=== PATIENT | female | born 2000 | race American Indian/Alaskan Native ===

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

== ENCOUNTER 2022-04-27 21:46 | Emergency (ER) | payer MEDICAID ==
[2022-04-27] MEDS ORDERED: Tetracaine HCl/PF 0.5% 4 ML Bottle ONE (22:22)
[2022-04-27] MEDS ORDERED: Amoxicillin 500 MG Cap PO ONE (22:22)
== END 2022-04-27 22:40 | disposition home or self-care (01) ==
LOC: DL.ED 21:46
DX: H66.91 Otitis media, unspecified, right ear (principal); H66.92 Otitis media, unspecified, left ear
CPT/HCPCS: 99282; A9270

== ENCOUNTER 2023-02-08 04:58 | Emergency (ER) | payer SELFPAY ==
[~2023-02-08 04:58] MED LIST changes: -Acetaminophen 325 MG Tab PO PRN; -Carboprost Tromethamine 250 MCG/1 ML Amp IM PRN; -Lactated Ringers 1,000 ML IV ONE; -Lactated Ringers 1,000 ML IV SCH; -Lidocaine 1% 30 ML SDV INJECT PRN; -Methylergonovine 0.2 MG/1 ML Amp IM PRN; -Misoprostol 25 MCG (1/4 of 100 MCG) Tab VAG PRN; -Misoprostol 400 MCG (4 X 100 MCG TAB) RECTAL PRN; -Misoprostol 50 MCG (1/2 of 100 MCG) Tab VAG ONE; -Oxytocin/Normal Saline 30 UNIT/500 ML BAG IV SCH; +Sodium Chloride 0.9% 1,000 ML IV ONE; -Tranexamic Acid 1,000 MG in Sodium Chloride 0.9% 100 ML IV PRN
[2023-02-08 05:13] LABS: BASOPHILS PERCENT AUTO 0.3 % (0.0-1.0); EOSINOPHILS PERCENT AUTO 2.7 % (1.0-3.0); HEMATOCRIT 37.7 % (37.0-47.0); HEMOGLOBIN 12.3 g/dL (12.0-16.0); LYMPHOCYTES PERCENT AUTO 29.2 % (20.5-50.1); MEAN CORPUSCULAR HEMOGLOBIN 23.3 pg (27.0-34.0); MEAN CORPUSCULAR HGB CONC 32.6 g/dL (33.0-35.0); MEAN CORPUSCULAR VOLUME 71.3 fL (80-100); MONOCYTES PERCENT AUTO 6.4 % (2-8); NEUTROPHILS PERCENT AUTO 61.4 % (42.2-75.2); PLATELET COUNT,PLT 439 10^3/uL (150-450); RED BLOOD CELL COUNT 5.29 10^6/uL (4.2-5.4); WHITE BLOOD CELL COUNT,WBC 10.5 10^3/uL (5.0-10.0)
[2023-02-08 05:32] LABS: A/G RATIO 0.9; ALANINE AMINOTRANSFERASE,ALT 43 U/L (14-59); ALBUMIN 3.8 g/dL (3.4-5.0); ALKALINE PHOSPHATASE 163 U/L (46-116); ANION GAP 17.4 mEq/L (7-13); ASPARTATE AMNIOTRANSFERASE,AST 30 U/L (15-37); BILIRUBIN TOTAL 0.3 mg/dL (0.2-1.0); BLOOD UREA NITROGEN,BUN 7 mg/dL (7-18); BUN/CREATININE RATIO 11.7 (No establ ref range); CALCIUM 8.4 mg/dL (8.5-10.1); CARBON DIOXIDE,CO2 23 mmol/L (21-32); CHLORIDE,CL 102 mmol/L (98-107); ETHANOL BLOOD MEDICAL 266 mg/dL (0); GLUCOSE RANDOM 139 mg/dL (70-99); POTASSIUM,K 3.4 mmol/L (3.5-5.1); PROTEIN TOTAL,TP 7.9 g/dL (6.4-8.2); SODIUM,NA 139 mmol/L (136-145)
[2023-02-08 05:34] LABS: ESTIMATED GFR 132 mL/min (>=60)
[2023-02-08] MEDS ORDERED: Ondansetron 8 MG in Sodium Chloride 0.9% 50 ML IV ONE (05:59)
== END 2023-02-08 08:32 | disposition home or self-care (01) ==
LOC: DL.ED 04:58
DX: S00.03XA Contusion of scalp, initial encounter (principal); S00.83XA Contusion of other part of head, initial encounter; S10.93XA Contusion of unspecified part of neck, initial encounter; F10.929 Alcohol use, unspecified with intoxication, unspecified; Y90.8 Blood alcohol level of 240 mg/100 ml or more; Y04.0XXA Assault by unarmed brawl or fight, initial encounter
CPT/HCPCS: 36415; 70450; 70486; 80053; 80307; 82947; 84703; 85025; 96361; 96374; 99284; 99285; J2405; J3490; J7030

== ENCOUNTER 2023-04-11 07:53 | Emergency (ER) | payer SELFPAY | END 2023-04-11 08:36 | disposition home or self-care (01) | LOC: DL.ED 07:53 | DX: L60.3 Nail dystrophy (principal) | CPT/HCPCS: 99282; 99283 ==

== ENCOUNTER 2023-09-13 13:32 | Emergency (ER) | payer MEDICAID ==
[2023-09-13] MEDS: Dexamethasone 4 MG/ML SDV PO ONE (14:08)
== END 2023-09-13 14:14 | disposition home or self-care (01) ==
LOC: DL.ED 13:32
DX: H69.93 Unspecified Eustachian tube disorder, bilateral (principal); H92.23 Otorrhagia, bilateral
CPT/HCPCS: 99282; J8540